=== PATIENT | female | born 1945 | race Caucasian/White ===

== ENCOUNTER 2020-11-15 10:44 | Day surgery (SDC) | payer MEDICARE, OTHER ==
[~2020-11-15] VITALS: Ht 157.5 cm; Wt 96.5 kg
[~2020-11-15 10:44] MED LIST: BENEFIBER152 G1 PO; CLON1; CYPR4 PO; DESO.05TL TP; DIAZEPAM; EUTHYROX125 MCG PO; FAMO40 PO; GABA300 PO; HYDPAM25 PO; IBUP800 PO; LASIX40 MG PO; LEVSOD125; LEVSOD25; LISI10; MULTI-VITAMIN1 EAC2 PO; POTA10T PO; TRAM50 PO; TRIHYD253A; UNK DIURETIC; VENL75
[2020-11-15] MEDS ORDERED: LISI5 PO (11:13)
[2020-11-15] MEDS ORDERED: Lisinopril2.5 MG PO (11:13)
== END 2020-11-15 13:44 | disposition home or self-care (01) ==
LOC: ORSCSDS 10:44
PROVIDERS: Internal Medicine Gastroenterology
PROC: 0DJD8ZZ Inspection of Lower Intestinal Tract, Via Natural or Artificial Opening Endoscopic (ICD-10-PCS; principal; 2020-11-15 12:00)
DX: R19.4 Change in bowel habit (principal); K57.30 Diverticulosis of large intestine without perforation or abscess without bleeding; K64.8 Other hemorrhoids; K64.4 Residual hemorrhoidal skin tags; I10 Essential (primary) hypertension; Z87.891 Personal history of nicotine dependence; Z79.899 Other long term (current) drug therapy; E66.01 Morbid (severe) obesity due to excess calories; Z68.38 Body mass index [BMI] 38.0-38.9, adult; M79.7 Fibromyalgia; F41.9 Anxiety disorder, unspecified
CPT/HCPCS: J2250; J2704; J7120

== ENCOUNTER → 2021-02-14 | Outpatient (CLI) | payer MEDICARE, OTHER ==
[~2021-02-14] MED LIST changes: +LISI5 PO; +Lisinopril2.5 MG PO
== END | disposition home or self-care (01) ==
LOC: LAB 11:28 → LAB SHORT 11:28
DX: A49.9 Bacterial infection, unspecified (principal)
CPT/HCPCS: 87070; 87077; 87186

== ENCOUNTER → 2022-01-29 | Outpatient (CLI) | payer MEDICARE, OTHER ==
[2022-01-29 19:56] LABS: Albumin, Blood 3.9 g/dL (3.4-5.0); Bilirubin, Total 0.5 mg/dL (0.1-1.0); Bun/Creatinine Ratio 23.5 (12.0-20.0); Calcium, Blood 9.4 mg/dL (8.5-10.1); Creatinine, Blood 0.85 mg/dL (0.40-1.00); Free Thyroxine 1.45 ng/dL (0.70-1.60); Globulin, Blood 4.1 g/dL (2.2-4.0); Thyroid Stimulating Hormone 0.012 uIU/mL (0.360-4.800); Triiodothyronine, Free 2.43 pg/mL (2.18-3.98)
== END | disposition home or self-care (01) ==
LOC: LAB SHORT 14:55
PROVIDERS: Hospitalist
DX: I10 Essential (primary) hypertension (principal); E03.9 Hypothyroidism, unspecified
CPT/HCPCS: 80053; 84439; 84443; 84481